=== PATIENT | male | born 1970 | race Asian ===

== ENCOUNTER 2018-09-21 08:33 | Observation (INO) | payer BC ==
[~2018-09-21] VITALS: Ht 172.7 cm; Wt 93.7 kg
[2018-09-21] VITALS (8 sets, daily range): BP systolic 107–123; BP diastolic 66–87; PULSE 53–67; TEMP 97.8–98.2
[2018-09-21] MEDS ORDERED: XANAX 0.5MG0.5 MG PO (08:45)
[2018-09-21] MEDS ORDERED: TOPROL XL100 MG PO (08:45)
[2018-09-21] MEDS ORDERED: BRILINTA90 MG PO (08:46)
[2018-09-21] MEDS ORDERED: PAXIL 20MG20 MG PO (08:47)
[2018-09-21] MEDS ORDERED: LIPITOR 80MG80 MG PO (08:48)
[2018-09-21] MEDS ORDERED: ASPIRIN E.C. 8181 MG PO (08:50)
[2018-09-21] MEDS ORDERED: NORVASC 10MG10 MG PO (08:51)
[2018-09-21 09:19] LABS: HEMATOCRIT 40.6 % (42.0-52.0); HEMOGLOBIN 14.3 g/dl (13.5-18.0); MEAN CELL VOLUME 86 fl (80.0-100.0); MEAN CORPUSCULAR HEMOGLOBIN 30 pg (27.0-31.0); MEAN CORPUSCULAR HGB CONC 35 g/dl (33.0-37.0); MEAN PLATELET VOLUME 9.4 fl (7.4-10.4); PLATELET COUNT 259 K/mm3 (130-400); REDCELL DISTRIBUTION WIDTH-CV 14.3 % (11.5-14.5)
[2018-09-21 09:26] LABS: PROTHROMBIN TIME 11.4 SECONDS (9.7-12.8)
[2018-09-21 09:29] LABS: CALCIUM 9.3 mg/dL (8.4-10.2); CREATININE, serum 0.91 mg/dL (0.66-1.25); POTASSIUM 3.5 mmol/L (3.4-5.0)
[2018-09-22] VITALS (7 sets, daily range): BP systolic 100–119; BP diastolic 41–72; PULSE 55–74; TEMP 97.8–98.2
[2018-09-22] MEDS ORDERED: NITROSTAT0.4 MG/TAB SL (13:32)
== END 2018-09-22 15:00 | disposition home or self-care (01) ==
LOC: COL.CAR 08:33 → MEDICAL 08:34 → COL.CAR 12:05 → MEDICAL 09-22 15:00
PROVIDERS: Internal Medicine Cardiovascular Disease
DX: I25.10 Atherosclerotic heart disease of native coronary artery without angina pectoris (principal); I10 Essential (primary) hypertension; E78.5 Hyperlipidemia, unspecified; R94.39 Abnormal result of other cardiovascular function study; I48.0 Paroxysmal atrial fibrillation; G45.9 Transient cerebral ischemic attack, unspecified; G47.33 Obstructive sleep apnea (adult) (pediatric); C92.10 Chronic myeloid leukemia, BCR/ABL-positive, not having achieved remission; Z79.82 Long term (current) use of aspirin; Z83.3 Family history of diabetes mellitus; Z82.49 Family history of ischemic heart disease and other diseases of the circulatory system
CPT/HCPCS: A9505; C1769; C1887; G0378; G0379; J1200; J1644; J2250; J2785; J3010; J7030; Q9967

== ENCOUNTER 2018-11-21 09:47 | Observation (INO) | payer BC ==
[~2018-11-21] VITALS: Ht 172.7 cm; Wt 94.4 kg
[~2018-11-21 09:47] MED LIST: ASPIRIN E.C. 8181 MG PO; BRILINTA90 MG PO; LIPITOR 80MG80 MG PO; NITROSTAT0.4 MG/TAB SL; NORVASC 10MG10 MG PO; PAXIL 20MG20 MG PO; TOPROL XL100 MG PO; XANAX 0.5MG0.5 MG PO
[2018-11-21 10:55] LABS: HEMATOCRIT 38.3 % (42.0-52.0); HEMOGLOBIN 13.3 g/dl (13.5-18.0); MEAN CELL VOLUME 88 fl (80.0-100.0); MEAN CORPUSCULAR HEMOGLOBIN 31 pg (27.0-31.0); MEAN CORPUSCULAR HGB CONC 35 g/dl (33.0-37.0); MEAN PLATELET VOLUME 9.7 fl (7.4-10.4); PLATELET COUNT 175 K/mm3 (130-400); RED BLOOD COUNT 4.35 M/mm3 (4.20-5.60); REDCELL DISTRIBUTION WIDTH-CV 14.2 % (11.5-14.5)
[2018-11-21 10:56] LABS: ALBUMIN 4.1 gm/dL (3.5-5.0); BILIRUBIN,TOTAL 0.9 mg/dL (0.0-1.0); CALCIUM 8.4 mg/dL (8.4-10.2); CREATININE, serum 1.86 mg/dL (0.66-1.25); POTASSIUM 3.4 mmol/L (3.4-5.0); TOTAL PROTEIN 7.3 gm/dL (6.4-8.2)
[2018-11-21] MEDS ORDERED: KLONOPIN 0.5MG0.5 MG PO (10:57)
[2018-11-21] MEDS ORDERED: RANEXA 500MG T500 MG PO (10:57)
[2018-11-21] MEDS ORDERED: COMBIGAN 0.2%-0.5 ML OS (10:57)
[2018-11-21 10:59] LABS: INR 1.2 (0.8-3.0)
[2018-11-21 11:08] LABS: TROPONIN-I 0.035 ng/mL (0.000-0.035)
[2018-11-21 11:21] LABS: BAND 46 % (0-10); LYMPHOCYTE 26 % (20.0-51.0); NEUTROPHILS 14 % (42.0-75.2); PLATELET ESTIMATE NORMAL (NORMAL)
[2018-11-21 14:14] LABS: COLLECTION METHOD CLEAN CATCH
[2018-11-21 14:24] LABS: MUCOUS Present /lpf; PH 5 (5-8); SQUAMOUS EPITHELIAL 0-2 /hpf; URINE APPEARANCE Hazy; URINE BACTERIA None Seen /hpf; URINE BILIRUBIN Negative (NEGATIVE); URINE BLOOD Negative (NEGATIVE); URINE COLOR Amber; URINE GLUCOSE Negative (NEGATIVE); URINE KETONE Negative (NEGATIVE); URINE LEUKOCYTE ESTERASE Negative (NEGATIVE); URINE NITRATE Negative (NEGATIVE); URINE PROTEIN(semi-quant) 1+ (NEGATIVE); URINE UROBILINOGEN Negative (NEGATIVE)
[2018-11-21] MEDS ORDERED: ZOFRAN ODT8 MG PO (14:36)
[2018-11-21 16:45] VITALS: BP 138/70; PULSE 87; TEMP 98.9
[2018-11-21] MEDS ORDERED: ZYRTEC 10MG10 MG PO (16:57)
--- NOTE | 2018-11-21 17:01 | NUR ---
Pt arrives to medical from ED. Complaining of some nausea and diarrhea. IVF infusing per orders. Medications updated. Dr. Alvares in to see patient.
--- NOTE | 2018-11-21 18:15 | NUR ---
Dr. Marques in to see patient. IVF infusing per orders. Denies further needs at this time; will continue to monitor.
--- NOTE | 2018-11-21 19:04 | NUR ---
Report given to BEAU Blandon. Pt resting in bed.
[2018-11-21 19:20] VITALS: BP 96/51; PULSE 91; TEMP 99.6
[2018-11-21 20:13] VITALS: BP 101/54; PULSE 93; TEMP 102.6
--- NOTE | 2018-11-21 21:00 | NUR ---
Initial shift assessment done-Temp 102.6, will call DR. Alvares with temp and get orders- IV fluids of NS at 150cc/hr, Tele on, Pt denies pain just states he feels tired,weak--did have small amount liquid mucous stool-sent to lab for culture/and occult
[2018-11-22] VITALS (8 sets, daily range): BP systolic 103–129; BP diastolic 53–60; PULSE 77–103; TEMP 98.6–100.4
--- NOTE | 2018-11-22 05:33 | NUR ---
Was started on antibiotics during the night- temp 99.4 at this time,,pt was given Zofran for nausea x1- Up in [place] short walk this morning- states feeling a little better
[2018-11-22 06:48] LABS: HEMOGLOBIN 12.3 g/dl (13.5-18.0); MEAN CELL VOLUME 86 fl (80.0-100.0); MEAN CORPUSCULAR HEMOGLOBIN 31 pg (27.0-31.0); MEAN CORPUSCULAR HGB CONC 36 g/dl (33.0-37.0); MEAN PLATELET VOLUME 9.5 fl (7.4-10.4); PLATELET COUNT 155 K/mm3 (130-400); RED BLOOD COUNT 4.01 M/mm3 (4.20-5.60); REDCELL DISTRIBUTION WIDTH-CV 14.1 % (11.5-14.5)
[2018-11-22 06:50] LABS: HEMATOCRIT 34.5 % (42.0-52.0)
[2018-11-22 07:01] LABS: CALCIUM 7.9 mg/dL (8.4-10.2); CREATININE, serum 1.09 mg/dL (0.66-1.25); POTASSIUM 3.3 mmol/L (3.4-5.0)
[2018-11-22 07:42] LABS: BAND 71 % (0-10); LYMPHOCYTE 18 % (20.0-51.0); NEUTROPHILS 2 % (42.0-75.2); PLATELET ESTIMATE NORMAL (NORMAL)
--- NOTE | 2018-11-22 08:32 | NUR ---
Pt resting in bed with call light within reach; complaining of increased abdominal pain this AM; prn morphine given. PRN zofran given. Denies further needs at this time; will continue to monitor.
[2018-11-22 13:18] LABS: HEMOGLOBIN 11.8 g/dl (13.5-18.0)
[2018-11-22 13:27] LABS: HEMATOCRIT 33.9 % (42.0-52.0)
--- NOTE | 2018-11-22 13:57 | NUR ---
JOSE ELIAS and SW student met with the patient to discuss discharge plan. The patient lives in [place] with his and two children and is a professor at [employer]. He reports independence with ADLs and does not use any DME. The patient's PCP is Dr. Doc Alvares and he receives his medication at the [facility]. He reports no difficulties obtaining his meds. The patient does not have advanced directives, but he was interested in obtaining the form for DPOA-HC. JOSE ELIAS provided. The patient plans to return home with his family upon discharge. No additional needs at this time.
--- NOTE | 2018-11-22 17:45 | NUR ---
Pt had uneventful day. Diet advanced to soft per orders. Pt is hoping to discharge by tomorrow. IV potassium and ABO's infusing per orders.
--- NOTE | 2018-11-22 17:55 | NUR ---
Received phone call from Dr. Patten; order received to put brilinta on hold until abdominal issues have resolved.
--- NOTE | 2018-11-22 18:54 | NUR ---
Report given to BEAU Crowell. Pt denies further needs at this time.
[2018-11-22 19:22] LABS: HEMOGLOBIN 12.7 g/dl (13.5-18.0)
[2018-11-22 19:38] LABS: HEMATOCRIT 35.4 % (42.0-52.0)
--- NOTE | 2018-11-22 21:09 | NUR ---
Sitting in bed. Reports x1 episode of diarrhea. Assessment complete. Alert and orientated. Lungs clear. Bowels active. Heart sounds normal. No edema noted. Denies pain. Denies needs at this time. Call light in reach.
--- NOTE | 2018-11-22 23:36 | NUR ---
Resting in bed. Denies needs. Call light in reach.
--- NOTE | 2018-11-22 23:39 | NUR ---
Temp 100.0. Provided PRN tylenol. Will monitor.
[2018-11-23 01:12] VITALS: TEMP 98.5
[2018-11-23 01:29] LABS: HEMOGLOBIN 12.3 g/dl (13.5-18.0)
--- NOTE | 2018-11-23 01:30 | NUR ---
Reassesed temperature. 98.5. Resting in bed on computer. Denies needs at this time. Call light in reach.
[2018-11-23 01:38] LABS: HEMATOCRIT 34.5 % (42.0-52.0)
[2018-11-23 03:51] VITALS: BP 131/65; PULSE 77; TEMP 97.9
--- NOTE | 2018-11-23 06:02 | NUR ---
Reports episodes of diarrhea throughout night and disorientated when waking up, quickly reorientated, otherwise uneventful night. Denies needs at this time. Call light in reach.
[2018-11-23 06:53] LABS: HEMOGLOBIN 12.2 g/dl (13.5-18.0); MEAN CELL VOLUME 86 fl (80.0-100.0); MEAN CORPUSCULAR HEMOGLOBIN 30 pg (27.0-31.0); MEAN CORPUSCULAR HGB CONC 35 g/dl (33.0-37.0); MEAN PLATELET VOLUME 9.9 fl (7.4-10.4); PLATELET COUNT 170 K/mm3 (130-400); RED BLOOD COUNT 4.03 M/mm3 (4.20-5.60); REDCELL DISTRIBUTION WIDTH-CV 14.2 % (11.5-14.5)
[2018-11-23 06:57] LABS: HEMATOCRIT 34.7 % (42.0-52.0)
[2018-11-23 07:18] LABS: CALCIUM 8.2 mg/dL (8.4-10.2); CREATININE, serum 0.89 mg/dL (0.66-1.25); POTASSIUM 3.3 mmol/L (3.4-5.0)
--- NOTE | 2018-11-23 07:57 | NUR ---
RECEIVED ORDERS FROM DR. RAYMOND FOR A STAT ON TIME ONLY OF KCL POTASIUM 40 MG PO. FOR POTASIUM LEVEL AT 3.3
[2018-11-23 08:12] VITALS: BP 119/69; PULSE 86; TEMP 98.5
--- NOTE | 2018-11-23 08:22 | NUR ---
PT SITTING UP IN BED, JUST FINISHED EATING BREAKFAST. PT HAS NO C/O PAIN OR DISCOMFORT, OR ANY N/V. PT ADVISES THAT SO FAR THIS AM HE HAS HAD 2 LOOSE STOOLS THAT WAS WATERY AND BROWN. PT HAS NO FURTHER NEEDS AT THIS TIME. IN ROOM WITH PT AND CALL LIGHT WITHIN REACH.
[2018-11-23 08:33] LABS: BAND 36 % (0-10); EOSINOPHIL 1 % (0-4); LYMPHOCYTE 12 % (20.0-51.0); NEUTROPHILS 46 % (42.0-75.2); PLATELET ESTIMATE NORMAL (NORMAL)
[2018-11-23] MEDS ORDERED: VANCOCIN H125 MG/CAP PO (09:49)
[2018-11-23 11:19] VITALS: BP 122/59; PULSE 85; TEMP 98.4
--- NOTE | 2018-11-23 11:45 | NUR ---
DR. THOMAS DISCHARGED PT. PT'S TELEMETRY TAKEN OFF, IV DC'D, CATHETER INTACT, APPLIED PRESSURE TILL BLEEDING STOPPED, AND PROTECTIVE DRSG. PT DENIED ANY PAIN OR DISCOMFORT. WENT OVER DISCHARGE PAPERWORK WITH PT AND PT FULLY UNDERSTOOD. NO FURTHER NEEDS OR QUESTIONS, WAS TAKEN DOWN TO PRIVATE VEHICLE ACCOMPANIED BY CNAs AND SPOUSE. PT LEFT FOR HOME VIA PRIVATE VEHICLE.
== END 2018-11-23 11:40 | disposition home or self-care (01) ==
LOC: COL.ER 09:47 → MEDICAL 15:15
PROVIDERS: Emergency Medicine; Internal Medicine Cardiovascular Disease; ADMIT Emergency Medicine
DX: K52.9 Noninfective gastroenteritis and colitis, unspecified (principal); E86.0 Dehydration; I10 Essential (primary) hypertension; E78.5 Hyperlipidemia, unspecified; I25.118 Atherosclerotic heart disease of native coronary artery with other forms of angina pectoris; Z79.82 Long term (current) use of aspirin; Z92.21 Personal history of antineoplastic chemotherapy; Z86.73 Personal history of transient ischemic attack (TIA), and cerebral infarction without residual deficits; Z85.6 Personal history of leukemia; Z82.5 Family history of asthma and other chronic lower respiratory diseases; Z83.3 Family history of diabetes mellitus; Z80.8 Family history of malignant neoplasm of other organs or systems
CPT/HCPCS: C9113; G0378; J0696; J2270; J2405; J2550; J3480; J7030

== ENCOUNTER → 2020-06-03 | Outpatient (CLI) | payer BC ==
[~2020-06-03] MED LIST changes: +COMBIGAN 0.2%-0.5 ML OS; +KLONOPIN 0.5MG0.5 MG PO; +RANEXA 500MG T500 MG PO; +VANCOCIN H125 MG/CAP PO; +ZOFRAN ODT8 MG PO; +ZYRTEC 10MG10 MG PO
[2020-06-03 15:32] LABS: BASO # 0.1 (0.0-0.2); BASO % 1.1 % (0.0-2.0); EOS # 0.2 (0.0-0.7); EOS % 2.7 % (0-4.0); GRAN % 54.6 % (42.2-75.2); HEMATOCRIT 41.8 % (42.0-52.0); HEMOGLOBIN 14.5 g/dl (13.5-18.0); LYMPH # 1.8 (1.2-3.4); LYMPH % 31.7 % (20.0-51.0); MEAN CELL VOLUME 87 fl (80.0-100.0); MEAN CORPUSCULAR HEMOGLOBIN 30 pg (27.0-31.0); MEAN CORPUSCULAR HGB CONC 35 g/dl (33.0-37.0); MEAN PLATELET VOLUME 9.1 fl (7.4-10.4); MONO # 0.5 (0.1-0.6); MONO % 9.7 % (1.7-9.3); PLATELET COUNT 224 K/mm3 (130-400); RED BLOOD COUNT 4.82 M/mm3 (4.20-5.60); REDCELL DISTRIBUTION WIDTH-CV 13.7 % (11.5-14.5)
[2020-06-03 15:44] LABS: ANION GAP 9 mmol/L (7-16); BLOOD UREA NITROGEN 13 mg/dL (9-20); CALCIUM 9.4 mg/dL (8.4-10.2); CARBON DIOXIDE 27 mmol/L (22-30); CHLORIDE 101 mmol/L (98-107); CREATININE, serum 0.93 (0.66-1.25); GLUCOSE 119 mg/dL (74-106); POTASSIUM 3.7 mmol/L (3.4-5.0); SODIUM 137 mmol/L (137-145)
[2020-06-03 16:23] LABS: TROPONIN-I < 0.012 ng/mL (0.000-0.035)
== END ==
LOC: COL.RAD 14:48 → COL.LAB 14:48
PROVIDERS: Emergency Medicine
DX: I25.10 Atherosclerotic heart disease of native coronary artery without angina pectoris (principal)

== ENCOUNTER 2020-08-02 07:10 | Day surgery (SDC) | payer BC ==
[~2020-08-02] VITALS: Ht 172.8 cm; Wt 98.1 kg
[2020-08-02] VITALS (11 sets, daily range): BP systolic 110–136; BP diastolic 61–94; PULSE 61–71; TEMP 97.5
[~2020-08-02 07:10] MED LIST changes: -COMBIGAN 0.2%-0.5 ML OS; +COMBIGAN 0.2%-0.5 ML OU
[2020-08-02 07:39] LABS: HEMATOCRIT 41.2 % (42.0-52.0); HEMOGLOBIN 14.8 g/dl (13.5-18.0); MEAN CELL VOLUME 88 fl (80.0-100.0); MEAN CORPUSCULAR HEMOGLOBIN 31 pg (27.0-31.0); MEAN CORPUSCULAR HGB CONC 36 g/dl (33.0-37.0); PLATELET COUNT 290 K/mm3 (130-400); RED BLOOD COUNT 4.71 M/mm3 (4.20-5.60)
[2020-08-02] MEDS ORDERED: ELIQUIS 5MG PO (07:40)
[2020-08-02] MEDS ORDERED: AMBIEN 10MG10 MG PO (07:41)
[2020-08-02 07:44] LABS: INR 1.1 (0.8-3.0); PROTHROMBIN TIME 11.8 SECONDS (9.7-12.8)
[2020-08-02 07:54] LABS: CALCIUM 9.2 mg/dL (8.4-10.2); CREATININE, serum 0.97 (0.66-1.25); POTASSIUM 3.4 mmol/L (3.4-5.0)
--- NOTE | 2020-08-02 09:28 | NUR ---
SEE OLLIE FOR ALL MEDICATION ADMINISTRATION TIMES AND INTRA AND POST SEDATION ASSESSMENTS
--- NOTE | 2020-08-02 13:20 | NUR ---
IV DC'd with catheter intact, bleeding controlled at site. No bleeding or hematoma formation at rt radial puncture site. Site is covered with 2x2 and bandaid. Pt sent with arm board. He expresses understanding of DC instructions. He is assisted out to 's car by wheelchair with personal belongings.
== END 2020-08-02 13:20 | disposition home or self-care (01) ==
LOC: COL.CAR 07:10
PROVIDERS: Internal Medicine Cardiovascular Disease
DX: I25.110 Atherosclerotic heart disease of native coronary artery with unstable angina pectoris (principal); Z20.828 Contact with and (suspected) exposure to other viral communicable diseases; Z95.818 Presence of other cardiac implants and grafts; I10 Essential (primary) hypertension; I48.0 Paroxysmal atrial fibrillation; Z86.73 Personal history of transient ischemic attack (TIA), and cerebral infarction without residual deficits; Z85.6 Personal history of leukemia
CPT/HCPCS: C1769; C1887; J0153; J1644; J2250; J3010; J7030

== ENCOUNTER → 2020-08-08 | Outpatient (CLI) | payer BC ==
[~2020-08-08] MED LIST changes: +AMBIEN 10MG10 MG PO; +ELIQUIS 5MG PO
[2020-08-08 17:31] LABS: TROPONIN-I < 0.012 ng/mL (0.000-0.035)
== END ==
LOC: ZCOL.LAB 16:40
PROVIDERS: Internal Medicine Interventional Cardiology
DX: R06.02 Shortness of breath (principal)

== ENCOUNTER → 2020-11-07 | Outpatient (CLI) | payer BC | LOC: COL.PUL 12:52 | DX: R06.02 Shortness of breath (principal) | CPT/HCPCS: J7674 ==